=== PATIENT | female | born 1995 | race Caucasian/White ===

== ENCOUNTER 2017-01-26 14:22 | Emergency (ER) | payer OTHER ==
[~2017-01-26] VITALS: Ht 170.2 cm; Wt 101.4 kg
[~2017-01-26 14:22] MED LIST: LORTAB 2.5/5001 TAB PO; NO HOME MEDICATIONS
[2017-01-26 14:28] VITALS: BP 145/83; PULSE 95; TEMP 98.4
[2017-01-26] MEDS ORDERED: PERCOCET 325 MG1 TA2 PO (14:32)
== END 2017-01-26 16:01 | disposition home or self-care (01) ==
LOC: COL.ER 14:22
DX: L98.9 Disorder of the skin and subcutaneous tissue, unspecified (principal); Z86.14 Personal history of Methicillin resistant Staphylococcus aureus infection